=== PATIENT | female | born 1985 | race American Indian/Alaskan Native ===

== ENCOUNTER 2020-04-11 19:00 | Emergency (ER) | payer SELFPAY ==
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
[2020-04-11 21:17] VITALS: BP 154/85
== END 2020-04-11 20:34 | disposition home or self-care (01) ==
LOC: ED 19:00
DX: G47.00 Insomnia, unspecified (principal); F17.200 Nicotine dependence, unspecified, uncomplicated
CPT/HCPCS: 99282

== ENCOUNTER 2020-04-12 03:00 | Emergency (ER) | payer SELFPAY ==
[2020-04-12] MEDS ORDERED: LORazepam 2 MG/ML VIAL ONE (03:07)
[2020-04-12] MEDS ORDERED: ZIPRASIDONE MESYLATE 20 MG VIAL IM ONE ×3 (03:07→16:24)
[2020-04-12] MEDS ORDERED: WATER FOR INJ Sterile (PF) 10 ML ONE (03:07)
[2020-04-12] MEDS ORDERED: LORazepam 2 MG/ML VIAL IM ONE (03:17)
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
[2020-04-12 04:01] LABS: Basophils # (Auto) 0.1 K/mm3 (0.0-0.1); Basophils % (Auto) 0.7 % (0.0-1.8); Eosinophils % (Auto) 0.2 % (0.0-4.3); Hemoglobin 13.2 gm/dl (10.1-14.3); Lymphocytes # (Auto) 1.9 K/mm3 (1.2-5.4); Lymphocytes % (Auto) 18.5 % (13.4-35.0); Mean Corpuscular HGB Conc 34 % (30-34); Mean Corpuscular Volume 99 fl (79-97); Monocytes # (Auto) 0.8 K/mm3 (0.0-0.8); Monocytes % (Auto) 8.2 % (0.0-7.3); Platelet Count 238 K/mm3 (140-440); Red Blood Count 3.96 M/mm3 (3.65-5.03)
[2020-04-12 04:23] LABS: Alanine Aminotransferase 18 units/L (7-56); Albumin 4.3 g/dL (3.9-5); BUN/Creatinine Ratio 16; Blood Urea Nitrogen 13 mg/dL (7-17); Calcium 8.9 mg/dL (8.4-10.2); Hemolysis Index 3
[2020-04-12 04:24] LABS: Bilirubin,Direct < 0.2 mg/dL (0-0.2)
[2020-04-12] MEDS ORDERED: POTASSIUM CHLORIDE ER 20 MEQ TAB PO ONE ×2 (04:46→23:15)
[2020-04-12 08:49] LABS: Bilirubin,Urine NEG (Negative); Blood,Urine NEG (Negative); Color,Urine Yellow (Yellow); Mucus,Urine FEW /HPF; Protein,Urine <15 mg/dL mg/dL (Negative); RBC,Urine < 1.0 /HPF (0.0-6.0); Urobilinogen,Urine < 2.0 mg/dL (<2.0)
[2020-04-12 08:57] LABS: Amphetamine Screen,Urine PRESUMPTIVE NEGATIVE; Benzodiazepines Screen,Urine PRESUMPTIVE NEGATIVE; Cocaine Screen,Urine PRESUMPTIVE NEGATIVE; Methadone Screen,Urine PRESUMPTIVE NEGATIVE; Opiate Screen,Urine PRESUMPTIVE NEGATIVE
[2020-04-12 09:41] LABS: Cannabinoid Screen,Urine PRESUMPTIVE POSITIVE
[2020-04-12] MEDS ORDERED: diphenhydrAMINE 25 MG CAP PO ONE (11:13)
[2020-04-12] MEDS: DIVALPROEX ER 250 MG TAB PO SCH ×2 (12:12→21:56)
[2020-04-12] MEDS: ZIPRASIDONE MESYLATE 20 MG VIAL IM PRN (18:00)
[2020-04-12] MEDS ORDERED: D5W/0.9% NACL 1,000 ML IV SCH (23:45)
[2020-04-13 00:15] LABS: BUN/Creatinine Ratio 13; Blood Urea Nitrogen 8 mg/dL (7-17); Calcium 9.2 mg/dL (8.4-10.2); Hemolysis Index 20
[2020-04-13] MEDS ORDERED: LORazepam 2 MG/ML VIAL IV ONE (01:06)
[2020-04-13] MEDS ORDERED: LORazepam 2 MG TAB PO PRN ×2 (01:42)
[2020-04-13] MEDS ORDERED: D5W/0.9% NACL 1,000 ML IV SCH (02:00)
[2020-04-13 02:36] LABS: Free T4 (Free Thyroxine) 1.61 ng/dL (0.76-1.46)
--- NOTE | 2020-04-13 10:48 | Consultation ---
History of Present Illness - Reason for Consult Consult date: 04/13/20 Reason for consult: MHE Requesting physician: MARIANA BEGUM - Chief Complaint Chief complaint: Erratic Behavior - History of Present Psychiatric Illness Per ED psych: 33-year-old female presents to ED for mental health evaluation. Patient arrives in police custody. 911 was called because patient was running naked around the apartment complex. Here in ED patient is yelling at staff. She appears to be manic, with pressured and disorganized speech. Patient keeps repeating, "Crazy people do not know they're crazy." Patient is agitated requiring chemical restraints at this time. Per MHA: Pt is a 34 year old female who presents to the ED per the triage note, "Pt brought in by [facility]. They were called out to pt's erractic behavior including running naked in apartment complex parking lot and jumping in a garbage truck. Pt began the assessment, "I'm still trying to catch up to my mind... Ooo weeee! I didn't realized I was this brilliant!" "Where am I?" "My sister has been confusing me all the time. My boyfriend wanted to take me for my insomnia... Jd Melendrez." "My sister out here got Bipolar II disorder, she is out here tearing down the [facility], but they are saying it's me. My sister has been setting me up. They believe in witchcraft, and are nasty, and set her boyfriend up to be murdered." "I don't have insurance because it's a [employer] company." HPI Patient is a 34-year-old unemployed -[place]ian female with past psychiatric history of depression and anxiety who presented to the ER for mental health evaluation due to erratic behavior. Patient reports that she feels she has figured out so many things, like the family, her sister all poisoning her through the use of Facebook. Patient reports that the [place] government do not really understand this because they are blind to do things that [place] happening [place]. Patient states affluence from suicide back in December and his family has been blaming her for it, but she also report that she was brought in by [facility]iti to the ER for evaluation due to lack of sleep. She states boyfriend is a chicken because she went "cold turkey" on him and most [place] dont know the meaning of "cold turkey" and she knows it because her dad who used to be a fisherman had told her the meaning. She endorses sleeplessness, racing thoughts, grandiosity, easily distracted, irritated because she feels like her nerves are bad all the time, and also endorses having random thoughts things that have happened in the past. Patient is also very talkative. She also claims BF has her kids and he better be taking care of them. Patient endorses THC use. PAST PSYCHIATRIC HISTORY Diagnoses: MDD and Anxiety Suicide attempts or Self-harm behavior: Denies Prior psychiatric hospitalizations: Denies Substance Abuse history: THC Previous psychiatric medications tried: None Outpatient treatment: None reported PAST MEDICAL HISTORY: None reported Family Psychiatric History: Yes, siblings SOCIAL HISTORY Marital Status: Single Living Arrangements: With BF Employment Status: employed Access to guns/weapons: None reported Education: Associate degree History of Abuse: None reported Legal History: Yes REVIEW OF SYSTEMS Constitutional: Negative for weight loss ENT: Negative for stridor Respiratory: Negative for cough or hemoptysis All other systems reviewed and are negative MENTAL STATUS EXAMINATION General Appearance and Behavior: Age appropriate, good hygiene, wearing appropriate clothes, lying in bed, good eye contact, cooperativewith questioning and irritable Cooperation: Participating/engaged Psychomotor Behavior: Psychomotor agitation Mood: "Okay" Affect and affective range: Euthymic, irritable Thought Process: Circumstantial Thought Content: Obsessions, Flight of ideas, Illogical, Grandiose, Phobia Paranoid, Ideas of reference, delusional Speech: pressured, loud volume Intellectual Functioning: Average Suicidal Ideation: Denies SI Homicidal Ideation: Denies HI Impulse Control: Impaired Insight and Judgment: Limited insight and judgment Memory: Normal Attention: Distracted Orientation: Alert, oriented, delusional Assessment and Plan - Psychiatric problem (1) Severe manic bipolar 1 disorder with psychotic behavior Current Visit: Yes Status: Acute RECOMMENDATIONS MEDICATIONS: Started on Mood stabilizer and antipsychotic Risks, benefits and alternatives of medications discussed with the patient, questions answered and consent obtained from patient. PSYCHOTHERAPY: Supportive psychotherapy provided MEDICAL: Per primary team DELIRIUM PRECAUTIONS: Please re-orient patient frequently, keep lights on during the day, and minimize benzodiazepines and opiates as these medications could worsen patient's confusion. AUTOMATION CONSULTANT: Per medical team DISPOSITION: Recommends acute inpatient psychiatric hospitalization at this time LEGAL STATUS: 1013 FOLLOW-UP: Will follow Thank you for the consult. Please contact with any questions and/or concerns. Medications and Allergies Allergies Allergy/AdvReac Type Severity Reaction Status Date / Time No Known Allergies Allergy Unverified 04/11/20 19:51 Active Meds: Active Medications Divalproex Sodium (Depakote Er) 250 mg PO BID [facility] Last Admin: 04/12/20 21:56 Dose: 250 mg Documented by: Lorazepam (Ativan) 2 mg PO Q1HR PRN PRN Reason: CIWA-Ar 8-15 Lorazepam (Ativan) 4 mg PO Q1HR PRN PRN Reason: CIWA-Ar 16-25 Potassium Chloride (K-Dur) 20 meq PO BID [facility] Stop: 04/14/20 22:01 Ziprasidone (Geodon) 10 mg IM Q2H PRN PRN Reason: Agitation Last Admin: 04/12/20 18:00 Dose: 10 mg Documented by: Mental Status Exam - Vital signs Last Vital Signs Temp 97.9 F 04/13/20 08:00 Pulse 84 04/13/20 08:00 Resp 20 04/13/20 08:00 BP 139/80 04/13/20 08:00 Pulse Ox 100 04/13/20 08:00 Results Result Diagrams: 04/12/20 03:28 04/12/20 23:34 Abnormal lab results 04/12/20 04/12/20 04/13/20 Range/Units 13:17 23:34 01:31 Sodium 135 L (137-145) mmol/L Potassium 3.2 L 3.3 L (3.6-5.0) mmol/L Carbon Dioxide 18 L (22-30) mmol/L Creatinine 0.6 L (0.7-1.2) mg/dL Glucose 118 H (65-100) mg/dL Free T4 1.61 H (0.76-1.46) ng/dL All other labs normal. Assessment and Plan - Psychiatric problem (1) Severe manic bipolar 1 disorder with psychotic behavior Current Visit: Yes Status: Acute
[2020-04-13] MEDS: DIVALPROEX ER 250 MG TAB PO SCH ×2 (11:34→22:39)
[2020-04-13] MEDS: POTASSIUM CHLORIDE ER 20 MEQ TAB PO SCH ×2 (11:39→22:40)
[2020-04-13] MEDS ORDERED: WATER FOR INJ Sterile (PF) 10 ML ONE (13:45)
[2020-04-13] MEDS: ZIPRASIDONE MESYLATE 20 MG VIAL IM PRN (15:03)
[2020-04-14] MEDS: ZIPRASIDONE MESYLATE 20 MG VIAL IM PRN ×2 (04:19→07:43)
[2020-04-14] MEDS ORDERED: LORazepam 2 MG/ML VIAL IM ONE (07:28)
[2020-04-14 08:13] LABS: BUN/Creatinine Ratio 3; Blood Urea Nitrogen 2 mg/dL (7-17); Calcium 9.4 mg/dL (8.4-10.2); Hemolysis Index 3
[2020-04-14 08:15] LABS: Creatine Kinase MB 2.1 ng/mL (0.0-4.0)
--- NOTE | 2020-04-14 09:55 | Progress Note ---
Subjective - Reason for Consult Consult date: 04/14/20 Reason for consult: MHE Requesting physician: MARIANA BEGUM - Chief Complaint Chief complaint: ED Floor Nurse: Received report from KAYCE Mercedes. Assumed care ot pt. Pt AAOx4. Pt frequently leaving room, often speaking loudly and cursing. Pt needs frequent redirection and reminders to stay in room. Will continue to monitor. Psych Patient seen in seclusion room, says she knows there are demons here and its all due to her setp grandmas fault. Patient also angry for being in this place, says she wants to leave. MENTAL STATUS EXAMINATION General Appearance and Behavior: Age appropriate, good hygiene, wearing appropriate clothes, lying in bed, poor eye contact, uncooperative with questioning and irritable Cooperation: withdrawn Psychomotor Behavior: Psychomotor agitation Mood: "Okay" Affect and affective range: Euthymic, irritable Thought Process: Circumstantial Thought Content: Obsessions, Flight of ideas, Illogical, Grandiose, Phobia Paranoid, Ideas of reference, delusional Speech: pressured, loud volume Intellectual Functioning: Average Suicidal Ideation: Denies SI Homicidal Ideation: Denies HI Impulse Control: Impaired Insight and Judgment: Limited insight and judgment Memory: Normal Attention: Distracted Orientation: Alert, oriented, delusional Assessment and Plan - Psychiatric problem (1) Severe manic bipolar 1 disorder with psychotic behavior Current Visit: Yes Status: Acute RECOMMENDATIONS MEDICATIONS: Started on Mood stabilizer and antipsychotic Risks, benefits and alternatives of medications discussed with the patient, questions answered and consent obtained from patient. PSYCHOTHERAPY: Supportive psychotherapy provided MEDICAL: Per primary team DELIRIUM PRECAUTIONS: Please re-orient patient frequently, keep lights on during the day, and minimize benzodiazepines and opiates as these medications could worsen patient's confusion. SERVER SECURITY ADMINISTRATOR: Per medical team DISPOSITION: Recommends acute inpatient psychiatric hospitalization at this time LEGAL STATUS: 1013 FOLLOW-UP: Will follow Thank you for the consult. Please contact with any questions and/or concerns. Erratic Behavior Mental Status Exam - Vital signs Last Vital Signs Temp 97.7 F 04/14/20 08:50 Pulse 84 04/14/20 08:50 Resp 21 04/14/20 08:50 BP 107/58 04/14/20 08:50 Pulse Ox 97 04/14/20 08:50 Assessment and Plan - Patient Problems (1) Severe manic bipolar 1 disorder with psychotic behavior Current Visit: Yes Status: Acute
[2020-04-14] MEDS ORDERED: DIVALPROEX ER 500 MG TAB PO SCH (10:00)
[2020-04-14] MEDS: POTASSIUM CHLORIDE ER 20 MEQ TAB PO SCH ×2 (12:32→21:49)
[2020-04-15] MEDS ORDERED: LORazepam 1 MG TAB PO ONE ×2 (10:28→10:30)
--- NOTE | 2020-04-15 11:16 | Progress Note ---
Subjective - Reason for Consult Consult date: 04/15/20 Reason for consult: MHA Requesting physician: MARIANA BEGUM - Chief Complaint Chief complaint: ED Floor Nurse: Pt. awake, alert, and ambulatory. I talked with pt. about her hx of alcohol abuse. Pt. shows no s/s of ETOH withdrawal. Pt. denies s/s withdrawal. Pt. told me she writes for therapy and is currently writing her autobiography, and on page 73. Pt. talkative and pleasant. Pt. denies needs at this time. Psych Patient out of seclusion room, has remained calmed and cooperative, still very much talkative. She describes her mood today has happy and peaceful. Says shes only had issues with staff because she can easily pickle processor on the fakers. Reports poor sleep pattern but notes improvement. When asked about thoughts, she says she is thinking of running away with her BF and kids to [place] because her dad had told her its the best place ever. MENTAL STATUS EXAMINATION General Appearance and Behavior: Age appropriate, good hygiene, wearing appropriate clothes, lying in bed, good eye contact, cooperative with questioning and polite Cooperation: cooperative Psychomotor Behavior: Psychomotor agitation Mood: "happy and peaceful" Affect and affective range: Elated Thought Process: Circumstantial Thought Content: Obsessions, Flight of ideas, Illogical, Grandiose, delusional Speech: pressured, loud volume Intellectual Functioning: Average Suicidal Ideation: Denies SI Homicidal Ideation: Denies HI Impulse Control: Impaired Insight and Judgment: Fair insight and judgment Memory: Normal Attention: Distracted Orientation: Alert, oriented, Assessment and Plan - Psychiatric problem (1) Severe manic bipolar 1 disorder with psychotic behavior Current Visit: Yes Status: Acute RECOMMENDATIONS MEDICATIONS: Started on Mood stabilizer and antipsychotic Risks, benefits and alternatives of medications discussed with the patient, questions answered and consent obtained from patient. PSYCHOTHERAPY: Supportive psychotherapy provided MEDICAL: Per primary team DELIRIUM PRECAUTIONS: Please re-orient patient frequently, keep lights on during the day, and minimize benzodiazepines and opiates as these medications could worsen patient's confusion. DEFENCE INTELLIGENCE ANALYST: Per medical team DISPOSITION: Recommends acute inpatient psychiatric hospitalization at this time LEGAL STATUS: 1013 FOLLOW-UP: Will follow Thank you for the consult. Please contact with any questions and/or concerns. Erratic Behavior Mental Status Exam - Vital signs Last Vital Signs Temp 97.8 F 04/15/20 08:13 Pulse 111 H 04/15/20 08:13 Resp 18 04/15/20 08:13 BP 123/84 04/15/20 08:13 Pulse Ox 99 04/15/20 08:13 Assessment and Plan - Patient Problems (1) Severe manic bipolar 1 disorder with psychotic behavior Status: Acute
[2020-04-16] MEDS ORDERED: chlordiazePOXIDE 25 MG CAP PO PRN (04:36)
[2020-04-16] MEDS ORDERED: LORazepam 2 MG TAB PO PRN (04:36)
[2020-04-16] MEDS ORDERED: HALOPERIDOL LACTATE 5 MG/1 ML INJ IM PRN (06:55)
[2020-04-16] MEDS ORDERED: diphenhydrAMINE 25 MG CAP PO ONE (09:08)
--- NOTE | 2020-04-16 10:00 | Progress Note ---
Subjective - Reason for Consult Consult date: 04/16/20 Reason for consult: MHE Requesting physician: LAYO CARTER - Chief Complaint Chief complaint: ED Floor Nurse: [id number] Pt states, 'I need something for sleep. I'm going through a manic episode and alcohol withdrawal and need something to help me sleep'. [id number] Thomson of pt's complaints. Verbal order given to administer 50mg of Benadryl PO. Verbal order read back and confirmed. Psych Patient back in seclusion room, she reports getting no sleep, says theres a lot on her mind that she feels overloaded. MENTAL STATUS EXAMINATION General Appearance and Behavior: Age appropriate, good hygiene, wearing appropriate clothes, lying in bed, good eye contact, cooperative with questioning and polite Cooperation: cooperative Psychomotor Behavior: Psychomotor agitation Mood: "happy and peaceful" Affect and affective range: Elated Thought Process: Circumstantial Thought Content: Obsessions, Flight of ideas, Illogical, Grandiose, delusional Speech: pressured, loud volume Intellectual Functioning: Average Suicidal Ideation: Denies SI Homicidal Ideation: Denies HI Impulse Control: Impaired Insight and Judgment: Fair insight and judgment Memory: Normal Attention: Distracted Orientation: Alert, oriented, Assessment and Plan - Psychiatric problem (1) Severe manic bipolar 1 disorder with psychotic behavior Current Visit: Yes Status: Acute RECOMMENDATIONS MEDICATIONS: Started on Mood stabilizer and antipsychotic Risks, benefits and alternatives of medications discussed with the patient, questions answered and consent obtained from patient. PSYCHOTHERAPY: Supportive psychotherapy provided MEDICAL: Per primary team DELIRIUM PRECAUTIONS: Please re-orient patient frequently, keep lights on during the day, and minimize benzodiazepines and opiates as these medications could worsen patient's confusion. DIAMOND SORTER: Per medical team DISPOSITION: Recommends acute inpatient psychiatric hospitalization at this time LEGAL STATUS: 1013 FOLLOW-UP: Will follow Thank you for the consult. Please contact with any questions and/or concerns. Erratic Behavior Mental Status Exam - Vital signs Last Vital Signs Temp 98.0 F 04/16/20 01:53 Pulse 117 H 04/16/20 01:53 Resp 18 04/16/20 01:53 BP 120/75 04/16/20 01:53 Pulse Ox 97 04/16/20 01:53 Assessment and Plan - Patient Problems (1) Severe manic bipolar 1 disorder with psychotic behavior Status: Acute
[2020-04-16] MEDS ORDERED: DIVALPROEX ER 250 MG TAB PO SCH (11:00)
[2020-04-16] MEDS: OMEGA-3 FATTY ACIDS/FISH OIL 1 GRAM CAP PO SCH ×2 (11:00→23:17)
[2020-04-16] MEDS: HALOPERIDOL 2 MG TAB PO SCH ×2 (11:00→23:17)
[2020-04-16] MEDS: clonazePAM 0.5 MG TAB PO SCH ×2 (11:00→23:17)
[2020-04-16] MEDS: LITHIUM CARBONATE ER 300 MG TAB PO SCH ×2 (14:01→21:16)
[2020-04-16 19:52] VITALS: BP 124/73
[2020-04-16] MEDS ORDERED: MELATONIN 5 MG TAB PO PRN (22:00)
[2020-04-16] MEDS ORDERED: traZODone 50 MG TAB PO SCH (22:00)
== END 2020-04-17 01:14 ==
LOC: ED 03:00 → EEVIPCON 03:00 → ED 04-15 13:30
DX: F29 Unspecified psychosis not due to a substance or known physiological condition (principal); F17.200 Nicotine dependence, unspecified, uncomplicated; Z04.6 Encounter for general psychiatric examination, requested by authority
CPT/HCPCS: 36415; 80048; 80076; 80307; 81001; 82550; 82553; 83735; 84132; 84439; 84443; 84703; 85025; 96372; 96374; 99285; J2060; J3486; J7042; 80178; 80320; G0480; J1630